=== PATIENT | male | born 1975 | race Caucasian/White ===

== ENCOUNTER → 2018-03-22 | Outpatient (CLI) | payer OTHER | LOC: M LRY 09:39 | DX: M79.672 Pain in left foot (principal) ==

== ENCOUNTER → 2018-03-23 | Outpatient (CLI) | payer OTHER | LOC: M LRY 08:01 | DX: M79.672 Pain in left foot (principal) | CPT/HCPCS: 82270 ==

== ENCOUNTER → 2018-04-15 | Outpatient (CLI) | payer OTHER | LOC: M LRY 09:53 | DX: M79.672 Pain in left foot (principal) ==

== ENCOUNTER → 2018-04-15 | Outpatient (CLI) | payer OTHER | LOC: M LRY 10:06 | DX: M79.672 Pain in left foot (principal) | CPT/HCPCS: 73630; G0463 ==

== ENCOUNTER → 2018-11-18 | Outpatient (CLI) | payer OTHER ==
[~2018-11-18] MED LIST: ACET120S PO
--- NOTE | 2018-11-18 10:06 | REP ---
Left ribs series five views: There are no comparisons. There are old healed fractures anterolaterally in the left fourth and fifth ribs. No acute fractures are identified. No other rib abnormalities are identified. PA chest two views: There is no pneumothorax, hemothorax or pulmonary contusion. Old healed left rib fractures are noted. I suspect there is an old healed fracture of the right fifth rib. There are too small metallic surgical sutures in the soft tissues along the left lateral chest wall. The lung napier are clear. Cardiac size is normal. The to, mediastinum, skeletal structures are otherwise unremarkable. Electronically Signed by Guero Montano MD 11/18/2018 09:58 A
== END ==
LOC: M LRY 09:07
PROVIDERS: ATTEND Family Medicine
DX: R07.81 Pleurodynia (principal)
CPT/HCPCS: 71101; G0463